=== PATIENT | male | born 1980 | race Caucasian/White ===

== ENCOUNTER 2023-06-30 18:10 | Inpatient (IN) | payer OTHER ==
[2023-06-30 18:17] VITALS: BMI 25.7
[2023-06-30] MEDS ORDERED: morphine CARPU-JECT 4 MG/1 ML DISP.SYRIN IVPUSH ONE ×2 (18:23→19:41)
[2023-06-30] MEDS ORDERED: FAMOTIDINE 20 MG/50 ML IVPB 20 MG/50 ML MG IVPB ONE ×2 (18:24→18:26)
[2023-06-30] MEDS ORDERED: morphine SULFATE 4 MG/ML VIAL ONE ×2 (18:26→19:43)
[2023-06-30] MEDS ORDERED: ONDANSETRON 4 MG/2 ML VIAL IVPUSH ONE (18:34)
[2023-06-30] MEDS ORDERED: ONDANSETRON 4 MG/2 ML VIAL ONE (18:36)
[2023-06-30 18:57] LABS: HEMATOCRIT 47.5 % (35.4-49); HEMOGLOBIN 16.1 G/dL (11.7-16.9); MCH 31.8 pg (25.7-33.7); MCHC 33.9 g/dl (32.0-35.9); MEAN CELL VOLUME 93.9 fl (80-96); MEAN PLT VOLUME 7.4 fl (7.5-11.1); PLATELET COUNT 231.9 10^3/uL (134-434); RBC 5.06 10^6/uL (4.00-5.60); RDW 13.9 % (11.9-15.9); WHITE BLOOD COUNT 10.3 10^3/uL (4.0-10.8)
[2023-06-30 19:12] LABS: ALBUMIN 4.8 g/dl (3.4-5.0); BLOOD UREA NITROGEN 11.5 mg/dl (7-18); CALCIUM 11.1 mg/dl (8.5-10.1); CREATININE 1.1 mg/dl (0.6-1.3); MAGNESIUM 1.7 mg/dL (1.8-2.4); POTASSIUM 3.8 mmol/L (3.5-5.1); SGOT/AST 59.7 U/L (15-37); TOT PROT 7.4 g/dl (6.4-8.2)
[2023-06-30 19:25] LABS: PLATELET ESTIMATE ADEQUATE
[2023-06-30] MEDS ORDERED: SODIUM CHLORIDE 1,000 ML IV STA ×2 (19:41→23:29)
[2023-06-30] MEDS ORDERED: PANTOPRAZOLE SODIUM 40 MG in SODIUM CHLORIDE 100 ML IVPB ONE (19:43)
[2023-06-30] MEDS ORDERED: PANTOPRAZOLE SODIUM 40 MG VIAL ONE (19:48)
[2023-06-30 22:20] LABS: LACTIC ACID 2.6 mmol/L (0.4-2.0)
[2023-06-30 22:33] LABS: EPITHELIAL CELLS RARE /hpf
[2023-06-30 22:40] LABS: BILIRUBIN,TOTAL 1.3 mg/dl (0.2-1)
[2023-07-01] MEDS ORDERED: ONDANSETRON 4 MG/2 ML VIAL IVPUSH PRN (00:52)
[2023-07-01] MEDS: SODIUM CHLORIDE 1,000 ML IV SCH ×2 (02:32→11:14)
[2023-07-01] MEDS: morphine SULFATE 4 MG/ML VIAL IVPUSH PRN ×2 (02:33→06:39)
[2023-07-01 09:00] LABS: BLOOD UREA NITROGEN 8.1 mg/dl (7-18); CALCIUM 8.7 mg/dl (8.5-10.1); POTASSIUM 3.8 mmol/L (3.5-5.1); SGOT/AST 36.3 U/L (15-37); SGPT/ALT 54.5 U/L (7-52)
[2023-07-01] MEDS: amLODIPine BESYLATE 10 MG TABLET (FP) PO SCH (10:14)
[2023-07-01 10:28] LABS: HEMATOCRIT 41.8 % (35.4-49); HEMOGLOBIN 13.8 GM/dL (11.7-16.9); MCHC 32.9 g/dl (32.0-35.9); MEAN CELL VOLUME 94.3 fl (80-96); MEAN PLT VOLUME 8.4 fl (7.5-11.1); PLATELET COUNT 190 10^3/uL (134-434); RBC 4.43 M/mm3 (4.00-5.60); RDW 13.1 % (11.9-15.9); WHITE BLOOD COUNT 8.1 K/mm3 (4.0-10.0)
[2023-07-02] MEDS: POLYETHYLENE GLYCOL (HEALTHYLAX) 3350 17 GM PACKET PO SCH ×2 (06:26→09:27)
[2023-07-02 08:02] LABS: ALBUMIN 3.9 g/dl (3.4-5.0); BILIRUBIN,TOTAL 1.1 mg/dl (0.2-1); BLOOD UREA NITROGEN 6.5 mg/dl (7-18); CALCIUM 8.6 mg/dl (8.5-10.1); CREATININE 0.9 mg/dl (0.6-1.3); MAGNESIUM 1.6 mg/dL (1.8-2.4); PHOSPHOROUS 3.3 (2.5-4.9); POTASSIUM 3.4 mmol/L (3.5-5.1); SGOT/AST 26.2 U/L (15-37); SGPT/ALT 38.6 U/L (7-52)
[2023-07-02 09:08] LABS: BASO % 0.2 % (0-2.0); EOS % 2.3 % (0-4.5); HEMATOCRIT 42.9 % (35.4-49); HEMOGLOBIN 14.9 GM/dL (11.7-16.9); LYMPH % 6.7 % (8-40); MCH 31.8 pg (25.7-33.7); MCHC 34.7 g/dl (32.0-35.9); MEAN CELL VOLUME 91.5 fl (80-96); MONO % 8.1 % (3.8-10.2); NEUT % 82.7 % (42.8-82.8); PLATELET COUNT 169 10^3/uL (134-434); RBC 4.68 M/mm3 (4.00-5.60); RDW 13.3 % (11.9-15.9); WHITE BLOOD COUNT 10.2 K/mm3 (4.0-10.0)
[2023-07-02] MEDS: amLODIPine BESYLATE 10 MG TABLET (FP) PO SCH (09:27)
[2023-07-02] MEDS ORDERED: POTASSIUM CHLORIDE TABS 10 MEQ TABLET.ER (FP) PO ONE (09:45)
[2023-07-02] MEDS ORDERED: MAGNESIUM OXIDE 400 MG TABLET (FP) PO ONE (09:45)
[2023-07-03 08:52] LABS: BILIRUBIN,TOTAL 1.4 mg/dl (0.2-1); BLOOD UREA NITROGEN 8.9 mg/dl (7-18); CALCIUM 8.8 mg/dl (8.5-10.1); CREATININE 0.9 mg/dl (0.6-1.3); POTASSIUM 3.4 mmol/L (3.5-5.1); SGOT/AST 29.3 U/L (15-37); SGPT/ALT 34.8 U/L (7-52); TOT PROT 6.3 g/dl (6.4-8.2)
[2023-07-03] MEDS ORDERED: POTASSIUM CHLORIDE TABS 10 MEQ TABLET.ER (FP) PO ONE (09:10)
[2023-07-03] MEDS: amLODIPine BESYLATE 10 MG TABLET (FP) PO SCH (10:13)
[2023-07-03] MEDS: POLYETHYLENE GLYCOL (HEALTHYLAX) 3350 17 GM PACKET PO SCH (10:15)
[2023-07-03 10:52] LABS: BASO % 0.3 % (0-2.0); EOS % 1.5 % (0-4.5); HEMATOCRIT 43.4 % (35.4-49); HEMOGLOBIN 14.7 GM/dL (11.7-16.9); LYMPH % 6.2 % (8-40); MCH 31.3 pg (25.7-33.7); MCHC 33.8 g/dl (32.0-35.9); MEAN CELL VOLUME 92.5 fl (80-96); MEAN PLT VOLUME 8.2 fl (7.5-11.1); PLATELET COUNT 175 10^3/uL (134-434); RBC 4.69 M/mm3 (4.00-5.60); WHITE BLOOD COUNT 12.9 K/mm3 (4.0-10.0)
[2023-07-04 09:56] VITALS: BP 131/81; PULSE 92; RESP 16; TEMP 98
[2023-07-04] MEDS: amLODIPine BESYLATE 10 MG TABLET (FP) PO SCH (09:57)
[2023-07-04] MEDS: POLYETHYLENE GLYCOL (HEALTHYLAX) 3350 17 GM PACKET PO SCH (09:59)
[2023-07-04] MEDS ORDERED: POTASSIUM CHLORIDE TABS 10 MEQ TABLET.ER (FP) PO ONE (12:38)
== END 2023-07-04 14:10 | disposition home or self-care (01) | DRG 440 ==
LOC: FER 18:10 → FM/S 23:37
PROVIDERS: ADMIT Internal Medicine
DX: K85.20 Alcohol induced acute pancreatitis without necrosis or infection (principal); E80.6 Other disorders of bilirubin metabolism; R74.01 Elevation of levels of liver transaminase levels; I10 Essential (primary) hypertension; K76.0 Fatty (change of) liver, not elsewhere classified; K21.9 Gastro-esophageal reflux disease without esophagitis; F10.20 Alcohol dependence, uncomplicated; E78.5 Hyperlipidemia, unspecified; J45.909 Unspecified asthma, uncomplicated; F39 Unspecified mood [affective] disorder; G62.1 Alcoholic polyneuropathy
CPT/HCPCS: 36415; 71275-TC; 74174-TC; 74177-TC; 80053; 81003; 81015; 83605; 83690; 83735; 84100; 84478; 84484; 85025; 85027; 86803; 87086; 87340; 87517; 87635; 93005; 99285-25; Q9967